=== PATIENT | female | born 1985 | race Caucasian/White ===

== ENCOUNTER → 2016-12-12 | Outpatient (CLI) | payer OTHER ==
[~2016-12-12] MED LIST: COLACE 100MG C100 MG PO; IBUPROFEN600 MG PO; NORCO 5-325 TA1 EACH PO
[2016-12-12 10:12] LABS: HEMOGLOBIN 13.6 gm/dl (12.3-15.3); RED BLOOD COUNT 4.51 M/UL (4.00-5.10); WHITE BLOOD COUNT 4.9 K/UL (4.5-11.0)
== END ==
LOC: OPSV2 09:25
PROVIDERS: Obstetrics & Gynecology
DX: Z01.812 Encounter for preprocedural laboratory examination (principal); R10.2 Pelvic and perineal pain; Z88.8 Allergy status to other drugs, medicaments and biological substances
CPT/HCPCS: 36415; 81001; 85025

== ENCOUNTER → 2016-12-19 | Day surgery (SDC) | payer OTHER ==
[~2016-12-19] VITALS: Ht 162.6 cm; Wt 52.2 kg
== END | disposition home or self-care (01) ==
LOC: OR 06:09
PROVIDERS: Obstetrics & Gynecology
PROC: 0WJJ4ZZ Inspection of Pelvic Cavity, Percutaneous Endoscopic Approach (ICD-10-PCS; principal; 2016-12-19 07:45)
DX: N94.6 Dysmenorrhea, unspecified (principal); N94.10 Unspecified dyspareunia; K59.00 Constipation, unspecified; R10.2 Pelvic and perineal pain; F17.210 Nicotine dependence, cigarettes, uncomplicated; Z88.8 Allergy status to other drugs, medicaments and biological substances; G43.909 Migraine, unspecified, not intractable, without status migrainosus; Z87.440 Personal history of urinary (tract) infections
CPT/HCPCS: 84703; J1100; J1885; J2250; J2270; J2405; J2710; J2795; J3010; J7120

== ENCOUNTER 2021-05-21 05:19 | Emergency (ER) | payer OTHER ==
[2021-05-21] MEDS ORDERED: ZOFRAN ODT 4 MG4 MG SL (07:06)
== END 2021-05-21 07:14 | disposition home or self-care (01) ==
LOC: ER1 05:19
DX: R51.9 Headache, unspecified (principal); R11.2 Nausea with vomiting, unspecified; Z20.822 Contact with and (suspected) exposure to COVID-19
CPT/HCPCS: 96372; 99284; J1885; U0002